=== PATIENT | male | born 1975 | race Caucasian/White ===

== ENCOUNTER 2023-08-21 09:20 | Outpatient (OUT) | payer OTHER, SELFPAY ==
--- NOTE | 2023-08-21 09:32 | XR_ITS ---
The [address] [address] Patient Name: MARIO PERDOMO MRN: [id number] date: 1975 Sex: M Assigned Patient Location: [facility] Current Patient Location: [facility] Accession/Order Number: [id number] Exam Date: 08/21/2023 09:38 Report Date: 08/21/2023 23:55 At the request of: CAITY COVINGTON Procedure: XR shoulder RT min 2V EXAM: XR shoulder RT min 2V HISTORY: Shoulder Impingement M75.40 COMPARISON: None. TECHNIQUE: 3 views right shoulder FINDINGS: No acute fracture or aggressive osseous abnormality. Moderate degenerative changes of the acromioclavicular joint. Right lung is clear. XR/XR shoulder RT min 2V IMPRESSION: Moderate degenerative change of the acromioclavicular joint. Electronically authenticated by: TITO YU Date: 08/21/2023 23:55
== END 2023-08-21 09:21 | disposition home or self-care (01) ==
LOC: RAD 09:25
PROVIDERS: PCP Family Medicine; Visit Provider Family Medicine
DX: M75.41 Impingement syndrome of right shoulder (principal)
CPT/HCPCS: 73030

== ENCOUNTER 2025-02-27 14:52 | Outpatient (OUT) | payer OTHER, SELFPAY ==
--- NOTE | 2025-02-27 15:01 | XR_ITS ---
The [address] [address] Patient Name: MARIO PERDOMO MRN: [id number] date: 1975 Sex: M Assigned Patient Location: [facility] Current Patient Location: [facility] Accession/Order Number: [id number] Exam Date: 02/27/2025 15:20 Report Date: 02/27/2025 15:22 At the request of: CAITY COVINGTON MD Procedure: XR lumbar spine min 4V LUMBAR SPINE -4 views: CLINICAL HISTORY: Acute low back pain for the past 5 days after golfing. COMPARISON: None AP, lateral and both oblique views were obtained. There is no evidence of fracture. Alignment is maintained on the lateral view. The disc spaces are normal in height. There is minor endplate spurring and mild lower lumbar facet hypertrophy. No pars defect is identified. The sacroiliac joints are maintained and show minimal sclerosis. There are no paraspinal soft tissue abnormalities. XR/XR lumbar spine min 4V IMPRESSION: MILD DEGENERATIVE CHANGES. NO ACUTE BONY FINDINGS Impression dictated by: Khalida Aponte M.D. 02/27/2025 3:22 PM Dictation Location: [place] [address] Electronically authenticated by: [id number] Y Date: 02/27/2025 15:22
== END 2025-02-27 14:53 | disposition home or self-care (01) ==
PROVIDERS: PCP Family Medicine; Visit Provider Family Medicine
DX: M54.50 Low back pain, unspecified (principal); M51.369 Other intervertebral disc degeneration, lumbar region without mention of lumbar back pain or lower extremity pain; I10 Essential (primary) hypertension
CPT/HCPCS: 72110